=== PATIENT | male | born 1955 | race Caucasian/White ===

== ENCOUNTER 2019-04-12 14:01 | Emergency (ER) | payer OTHER ==
[~2019-04-12] VITALS: Ht 177.8 cm; Wt 88.5 kg
--- OUTSIDE RECORDS SUMMARY | 2019-04-12 14:04 | XMS REPORT ---
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 Allergies, Adverse Reactions, Alerts This patient has no known allergies or adverse reactions. Medications This patient has no known medications. Results Test Description Test Time Test Comments Text Results Atomic Results Result Comments 19722--GAGK PATH LEVEL 3 2018-12-06 08:53:00 RUN DATE: 12/06/18 [facility] LAB*Live* PAGE 1 RUN TIME: 0853 Specimen Inquiry PATIENT: CHRISTOPH DELAROSA ACCT: [id number] LOC: 2ND U: [id number] AGE/SX: 63/M ROOM: 209 RE12/05/18REG DR: Maurizio Gunter MD : 1955 BED: A DIS: STATUS: ADM Talia TLOC: SPEC : [id number] RECD: 12/05/18 STATUS: DIGNA PRATHER NUM: [id number] SAE: 12/05/18- SUBM DR: Maurizio Gunter MD ENTERED: 12/05/182 SP TYPE: INPATIENT OTHR DR: Jamhsid Stock Jennifer NPORDERED: [id number] CODES: APPENDIX, NOS COPIES TO: Maurizio Gunter MD [address] [facility] [address] [place], [place] [address] [email or web address] Jamshid Stock [address] [place] [address] [email or web address] Yarelis Aldana [employer] [address] [facility] [address] [place], [place] [id number] PROCEDURES: 38154 (12/06/18) TISSUES: APPENDIX, NOS - APPENDIX CLINICAL HISTORY Pre-op Diagnosis: Acute appendicitis.Post-op Diagnosis: Same. DIAGNOSIS Appendix, appendectomy: - Acute appendicitis - Fibro us obliteration of the tip - Fecaliths identified CPT 94437 CONTINUED ON NEXT PAGE RUN DATE: 12/06/18 [facility]* PAGE 2 RUN TIME: 0853 Specimen Inquiry SPEC: [id number] PATIENT: CHRISTOPH DELAROSA [id number] (Continued) GROSS DESCRIPTION The case is received in one part, labeled with the patient's name Christoph Delarosa andaccession #[id number] accompanied by a requisition slip labeled with the patient's name andthe same accession number. The specimen is received in formalin, labeled appendix and consists of an inflamed redappendix measuring 6.3 cm in length and 1 cm in diameter. The attached mesoappendix measures6.5 x 2.4 x 1.4 cm. The wall of the appendix appears intact and measures 0.1 and 0.2 cm inthickness. There is some purulent material in the lumen. There are also two brown fecalithsmeasuring 0.9 and 1 cm. The mucosa is erythematous. Teacher Learning Disabled sections, including thetip, are submitted in two cassettes. (ASW) MICROSCOPIC DESCRIPTION Sections show appendix with severe acute inflammation involving the lumen, appendix wall,serosa and surrounding soft tissue. There is fibrous obliteration of the tip. Signed (signature on file) Carol Beard MD 12/06/18 0853 END OF REPORT Basic Metabolic Panel 2018-12-06 06:42:00 Serum or plasma sodium measurement (moles/volume) (test ssex=6685-9) 141 mmol/L 136-145 Potassium [Moles/volume] in Serum or Plasma (test gham=7303-3) 4.2 mmol/L 3.5-5.1 Chloride [Moles/volume] in Serum or Plasma (test gcpf=6372-0) 108 mmol/L 98-107 Carbon dioxide, total [Moles/volume] in Serum or Plasma (test opet=0866-8) 27 mmol/L 21-32 Glucose [Mass/volume] in Serum or Plasma (test qzbq=9456-0) 164 mg/dL 74-106 Urea nitrogen [Mass/volume] in Serum or Plasma (test ouvm=6005-9) 9 mg/dL 7-18 Creatinine [Mass/volume] in Serum or Plasma (test yjhy=8932-3) 1.25 mg/dL 0.55-1.3 Glomerular Filtration Rate (test code=GFR) 59 mL =/>90 FOR CHRONIC KIDNEY DISEASE: GFR STAGE DESCRIPTION=/>90 STAGE 1 NORMAL--OR-- MINIMAL KIDNEY DAMAGE WITH NORMAL GFR 60-89 STAGE 2 MILD DECREASE IN GFR 30-59 STAGE 3 MODERATE DECREASE IN GFR 15-29 STAGE 4 SEVERE DECREASE IN GFR <15 STAGE 5 KIDNEY FAILURE The Glomerular Filtration Rate (GFR) has been calculated using the IDMS-Traceable MDRD Study Equation. Calcium [Mass/volume] in Serum or Plasma (test vxid=76596-4) 8.2 mg/dL 8.5-10.1 Primary Language Chilean Primary Language EnglishMagnesium [Mass/volume] in Serum or Kiiewz2274-55-41 06:42:00* Test Item Value Reference Range Comments Magnesium [Mass/volume] in Serum or Plasma (test etlb=21426-3) 2.0 mg/dL 1.8-2.4 Primary Language Chilean Primary Language EnglishComplete blood count (CBC) with automated white blood cell (WBC) yipruveihbrx9119-88-07 06:33:00* Test Item Value Reference Range Comments White blood cell count (test fhcb=UHV5884) 6.1 4.3-10.9 Blood erythrocytes count (number/volume) (test znyy=52414-6) 4.40 M/ul 4.33-5.43 Hemoglobin measurement (test iewp=BYX8932) 14.5 g/dL 13.6-17.9 Blood hematocrit (volume fraction) (test tlbx=63633-4) 43.3 % 39.6-49.0 MCV (test ahfs=CZM6253) 98.5 fL 80-100 32.9 MCHC (test code=MCHC) 33.4 g/dL 32.0-36.0 Platelets (test code=PLT) 128 152-406 Red Cell Distribution Width (test code=RDW) 13.3 % 12.1-15.2 Blood platelet mean volume (test wmnv=14105-3) 8.6 fL 7.6-11.3 Neutrophils % (test code=CARRIE%) 70.8 % 41.7-73.7 Lymphocytes/leuk NFr Bld (test birw=27611-1) 20.6 % 15.3-44.8 Monocyte percentage (test lmpt=0161-7) 7.2 % 3.3-12.3 Eosinophil % (test fvxw=652-6) 1.1 % 0-4.4 Basophil % (test grjx=64941-6) 0.3 % 0-1.3 Absolute neutrophil count (test roip=WLE7442) 4.3 1.8-8.0 Absolute lymphocyte count (test uezk=97105-3) 1.3 0.7-4.9 Absolute monocyte count (test hpfs=NPA4797) 0.4 0.1-1.3 Absolute Eosinophils (test code=EOA) 0.1 0-0.5 Absolute Basophils (test code=BASA) 0.0 0-0.5 Primary Language EnglishAngio Aorta For Dehgehixkg3712-10-82 08:48:[address] [address] RADIOLOGY SERVICES REPORT Name: CHRISTOPH DELAROSA Acct Number: [id number] :1955 Age:63 Sex:M Ord Phys: Stefania Reyes [facility] Unit Number: [id number] Prim Care Dr: Yarelis Aldana TE[employer]POS[employer] LEAKAGE Status: RE G ER ER Exam Date: 12/05/18 EXAM DESCRIPTION: CT - Angio Aorta For Dissection - 12/05/2018 8:29 am CLINIC AL HISTORY: Chest pain radiating to the back. abd pain COMPARISON: No comparisons TECHNIQUE: CT angiography of the aorta was performed with MIP s. All CT scans are performed using dose optimization technique as appropr iate and may include automated exposure control or mA/KV adjustment according to patient size. FINDINGS: A left aortic arch is present with normal branch ing pattern of the great vessels.No acute aortic finding is seen such as aneurys m, penetrating ulcer or dissection. The celiac axis, SMA, WILBERTO and renal arterie s are widely patent. Focal soft plaque is present right common iliac artery resu lting in mild luminal narrowing. No evidence of pulmonary embolism. Mild diffuse COPD. The liver demonstrates no focal mass or biliary dilatat ion.The spleen, pancreas, adrenal glands and kidneys are within normal limits fo r arterial phase imaging. No bowel obstruction, free fluid or abscess.The appendix is dilated and inflamed in the right lower quadrant measuring up to 12 mm. An appendicolith is seen in the base of the appendix.No pathologic enlarged lymphadenopathy identified. Bilateral total hip arthroplasties are noted. IMPRESSION: Acute appendicitis. No acute aortic finding. Signed By: Epifanio Rouse MD Signed AT: 12/05/18 0848 Basic Metabolic Ymgdl7162-90-29 07:42:00* Test Item Value Reference Range Comments Serum or plasma sodium measurement (moles/volume) (test ibfq=7542-4) 139 mmol/L 136-145 Potassium [Moles/volume] in Serum or Plasma (test yzuv=3405-8) 4.0 mmol/L 3.5-5.1 Chloride [Moles/volume] in Serum or Plasma (test gfib=7715-1) 105 mmol/L 98-107 Carbon dioxide, total [Moles/volume] in Serum or Plasma (test zyiu=4713-8) 27 mmol/L 21-32 Glucose [Mass/volume] in Serum or Plasma (test ktkg=8712-9) 126 mg/dL 74-106 Urea nitrogen [Mass/volume] in Serum or Plasma (test mvhn=2777-0) 14 mg/dL 7-18 Creatinine [Mass/volume] in Serum or Plasma (test getz=1385-8) 1.29 mg/dL 0.55-1.3 Glomerular Filtration Rate (test code=GFR) 57 mL =/>90 FOR CHRONIC KIDNEY DISEASE: GFR STAGE DESCRIPTION=/>90 STAGE 1 NORMAL--OR-- MINIMAL KIDNEY DAMAGE WITH NORMAL GFR 60-89 STAGE 2 MILD DECREASE IN GFR 30-59 STAGE 3 MODERATE DECREASE IN GFR 15-29 STAGE 4 SEVERE DECREASE IN GFR <15 STAGE 5 KIDNEY FAILURE The Glomerular Filtration Rate (GFR) has been calculated using the IDMS-Traceable MDRD Study Equation. Calcium [Mass/volume] in Serum or Plasma (test mehy=67477-3) 8.4 mg/dL 8.5-10.1 Comment Bed:[facility] (Hepatic) Iwamdutp8967-64-71 07:42:00* Test Item Value Reference Range Comments Aspartate aminotransferase [Enzymatic activity/volume] in Serum or Plasma by With P-5 (test rizz=60807-5) 28 U/L 15-37 Alanine aminotransferase [Enzymatic activity/volume] in Serum or Plasma by With P-5'- (test gdar=7578-1) 27 U/L 12-78 Alkaline phosphatase [Enzymatic activity/volume] in Serum or Plasma (test hzvb=7193-4) 68 U/L 45-117 Bilirubin.total [Mass/volume] in Serum or Plasma (test slpy=2230-7) 0.9 mg/dL 0.2-1.0 Bilirubin.direct [Mass/volume] in Serum or Plasma (test clzu=7115-2) 0.2 mg/dL 0-0.2 Protein [Mass/volume] in Serum or Plasma (test aszr=6996-4) 7.5 g/dL 6.4-8.2 Albumin [Mass/volume] in Serum or Plasma by Bromocresol purple (BCP) dye binding meth (test sakt=47744-5) 3.7 g/dL 3.4-5.0 Globulin (test code=GLOB) 3.8 g/dL 2.3-3.5 Albumin/Globulin Ratio (test code=A/G) 1.0 1.1-1.8 Comment Bed:8Troponin I.cardiac [Mass/volume] in Serum or Onjxiw4899-97-47 07:42:00* Test Item Value Reference Range Comments Troponin I.cardiac [Mass/volume] in Serum or Plasma (test ndum=59441-2) <0.02 ng/mL 0.0-0.045 Comment Bed:8Lipase [Enzymatic activity/volume] in Serum or Vzmjmz9695-68-17 07:42:00* Test Item Value Reference Range Comments Lipase [Enzymatic activity/volume] in Serum or Plasma (test nrfj=9243-2) 123 U/L 73-393 Comment Bed:8Creatinine [Mass/volume] in Serum or Scuxkb2150-85-18 07:28:00* Test Item Value Reference Range Comments Creatinine [Mass/volume] in Serum or Plasma (test jriq=4709-7) 1.35 mg/dL 0.55-1.3 Glomerular Filtration Rate (test code=GFRT) 54 mL >60 FOR CHRONIC KIDNEY DISEASE: GFR STAGE >60 1 or 2 30-59 3 15-29 4 <15(or dialysis) 5 The Glomerular Filtration Rate (GFR) has been calculated using the IDMS-Traceable MDRD Study Equation. Complete blood count (CBC) with automated white blood cell (WBC) differential 2018-12-05 07:13:00* Test Item Value Reference Range Comments White blood cell count (test zqdu=KOY1288) 13.2 4.3-10.9 Blood erythrocytes count (number/volume) (test vyhj=69534-6) 5.18 M/ul 4.33-5.43 Hemoglobin measurement (test mzlb=XLJ1511) 16.9 g/dL 13.6-17.9 Blood hematocrit (volume fraction) (test urlx=62691-9) 49.5 % 39.6-49.0 MCV (test jqva=BNQ7246) 95.5 fL 80-100 32.7 MCHC (test code=MCHC) 34.2 g/dL 32.0-36.0 Platelets (test code=PLT) 176 152-406 Red Cell Distribution Width (test code=RDW) 13.4 % 12.1-15.2 Blood platelet mean volume (test hlel=62989-3) 8.6 fL 7.6-11.3 Neutrophils % (test code=CARRIE%) 81.4 % 41.7-73.7 Lymphocytes/leuk NFr Bld (test nswo=68509-6) 10.5 % 15.3-44.8 Monocyte percentage (test vqlf=0877-8) 7.1 % 3.3-12.3 Eosinophil % (test oige=942-4) 0.7 % 0-4.4 Basophil % (test cxgr=11332-0) 0.3 % 0-1.3 Absolute neutrophil count (test kqmm=IUW1956) 10.8 1.8-8.0 Absolute lymphocyte count (test vofr=51076-0) 1.4 0.7-4.9 Absolute monocyte count (test lldy=RJK8855) 0.9 0.1-1.3 Absolute Eosinophils (test code=EOA) 0.1 0-0.5 Absolute Basophils (test code=BASA) 0.0 0-0.5 Estradiol, Omywq0135-07-93 15:03:00* Test Item Value Reference Range Comments Estradiol, Total (test code=ESTRA) <15 <=39 Reference range established on post- pubertal patient population. No pre-pubertal reference range established using this assay. For any patients for whom low Estradiol levels are anticipated (e.g. males, pre-pubertal children, and hypogonadal/post-menopausal females), the [facility] Estradiol, Ultrasensitive, LCMSMS assay is recommended (order code 40414). Please note: Patients being treated with the drug fulvestrant [Faslodex(R)] have demonstrated significant interference in immunoassay methods for estradiol measurement. The cross reactivity could lead to falsely elevated estradiol test results leading to an inappropriate clinical assessment of estrogen status. [facility] order code 15309-Kqtmnscxb, Ultrasensitive LC/MS/MS demonstrates negligible cross reactivity with fulvestrant. Luteinizing Flsaygd4415-08-58 22:06:00* Test Item Value Reference Range Comments Luteinizing Hormone (test code=LH) <0.2 1.6-15.2 BIOAVAILABLE TESTO (CODE 91465) INCLUDES TESTO-FREE (LG RED)Miscellaneous Test Zze0366-89-96 22:06:00* Test Item Value Reference Range Comments Miscellaneous Test Lab (test code=MISC) SENT Specimen sent to Reference Laboratory. Results to follow. BIOAVAILABLE TESTO (CODE 35002) INCLUDES TESTO-FREE (LG RED)Estrogen measurement 2018-08-24 22:06:00* Test Item Value Reference Range Comments Estrogen measurement (test hmhh=8120-9) 280.5 pg/mL 60-190 The total estrogen assay is not recommended for use in pre-pubertal children. Test performed by [facility] [address] [id number] Surveyor Mine: Steph Acosta MD,PHD,MENDEL Test Reported by [facility], [facility], [address] [place] [address] Kehinde Jefferson M.D., Ph.D., Director of Laboratories , CLIA [id number] BIOAVAILABLE TESTO (CODE 04354) INCLUDES TESTO-FREE (LG RED)Liver (Hepatic) Aeyrqowp1889-77-90 18:02:00* Test Item Value Reference Range Comments Aspartate aminotransferase [Enzymatic activity/volume] in Serum or Plasma by With P-5 (test ywne=47537-3) 31 U/L 15-37 Alanine aminotransferase [Enzymatic activity/volume] in Serum or Plasma by With P-5'- (test irxq=3010-8) 26 U/L 12-78 Alkaline phosphatase [Enzymatic activity/volume] in Serum or Plasma (test palg=0144-3) 80 U/L 45-117 Bilirubin.total [Mass/volume] in Serum or Plasma (test czsm=1276-8) 0.8 mg/dL 0.2-1.0 Bilirubin.direct [Mass/volume] in Serum or Plasma (test ntus=3311-3) 0.2 mg/dL 0-0.2 Protein [Mass/volume] in Serum or Plasma (test efst=7078-0) 7.4 g/dL 6.4-8.2 Albumin [Mass/volume] in Serum or Plasma by Bromocresol purple (BCP) dye binding meth (test ennc=41673-0) 3.9 g/dL 3.4-5.0 Globulin (test code=GLOB) 3.5 g/dL 2.3-3.5 Albumin/Globulin Ratio (test code=A/G) 1.1 1.1-1.8 Prostate specific Ag [Mass/volume] in Serum or Mhglsc3176-47-51 18:02:00* Test Item Value Reference Range Comments Prostate specific Ag [Mass/volume] in Serum or Plasma (test vkgs=5258-8) 0.38 ng/mL 0-4.00 Complete blood count (CBC) with automated white blood cell (WBC) differential 2018-08-20 17:13:00* Test Item Value Reference Range Comments White blood cell count (test phmz=HQK2952) 7.0 4.3-10.9 Blood erythrocytes count (number/volume) (test jcqb=61418-2) 5.32 M/ul 4.33-5.43 Hemoglobin measurement (test ixzr=FYO3077) 17.3 g/dL 13.6-17.9 Blood hematocrit (volume fraction) (test livb=10266-1) 51.4 % 39.6-49.0 MCV (test piyc=HCC6342) 96.6 fL 80-100 32.6 MCHC (test code=MCHC) 33.7 g/dL 32.0-36.0 Platelets (test code=PLT) 197 152-406 Red Cell Distribution Width (test code=RDW) 13.1 % 12.1-15.2 Blood platelet mean volume (test oynp=17288-1) 8.2 fL 7.6-11.3 Neutrophils % (test code=CARRIE%) 59.1 % 41.7-73.7 Lymphocytes/leuk NFr Bld (test vrwy=82053-6) 26.2 % 15.3-44.8 Monocyte percentage (test jsci=4153-3) 12.1 % 3.3-12.3 Eosinophil % (test txzq=432-5) 2.1 % 0-4.4 Basophil % (test bpkm=06889-3) 0.5 % 0-1.3 Absolute neutrophil count (test ljmn=774-7) 4.1 1.8-8.0 Absolute lymphocyte count (test pkhc=36097-8) 1.8 0.7-4.9 Absolute monocyte count (test ebbn=505-7) 0.8 0.1-1.3 Absolute Eosinophils (test code=EOA) 0.1 0-0.5 Absolute Basophils (test code=BASA) 0.0 0-0.5 Hemoglobin A1c/Hemoglobin.total in Pyjvz1539-17-07 14:23:00* Test Item Value Reference Range Comments Hemoglobin A1c/Hemoglobin.total in Blood (test axcs=9943-9) 5.6 % 4.2-6.3 *Heavy or chronic bleeding causing hemoglobin stores to be depleted may result in falsely low levels. *Iron Deficiency Anemia may result in falsely high levels. *Other forms of anemia, recent blood transfusions, and hemoglobin variants may result in spurious levels. Comprehensive metabolic egkan4556-69-37 13:06:00* Test Item Value Reference Range Comments Serum or plasma sodium measurement (moles/volume) (test xojx=3471-8) 142 mmol/L 136-145 Potassium [Moles/volume] in Serum or Plasma (test bqbd=9022-3) 4.4 mmol/L 3.5-5.1 Chloride [Moles/volume] in Serum or Plasma (test odqa=1233-8) 108 mmol/L 98-107 Carbon dioxide, total [Moles/volume] in Serum or Plasma (test tiqu=5184-4) 28 mmol/L 21-32 Glucose [Mass/volume] in Serum or Plasma (test ifxw=3397-1) 115 mg/dL 74-106 Urea nitrogen [Mass/volume] in Serum or Plasma (test ukrt=6437-3) 14 mg/dL 7-18 Creatinine [Mass/volume] in Serum or Plasma (test mcnq=4616-8) 1.25 mg/dL 0.55-1.3 Glomerular Filtration Rate (test code=GFR) 59 mL =/>90 FOR CHRONIC KIDNEY DISEASE: GFR STAGE DESCRIPTION=/>90 STAGE 1 NORMAL--OR-- MINIMAL KIDNEY DAMAGE WITH NORMAL GFR 60-89 STAGE 2 MILD DECREASE IN GFR 30-59 STAGE 3 MODERATE DECREASE IN GFR 15-29 STAGE 4 SEVERE DECREASE IN GFR <15 STAGE 5 KIDNEY FAILURE The Glomerular Filtration Rate (GFR) has been calculated using the IDMS-Traceable MDRD Study Equation. Aspartate aminotransferase [Enzymatic activity/volume] in Serum or Plasma by With P-5 (test saqm=53539-3) 28 U/L 15-37 Alanine aminotransferase [Enzymatic activity/volume] in Serum or Plasma by With P-5'- (test tpkk=9705-6) 23 U/L 12-78 Alkaline phosphatase [Enzymatic activity/volume] in Serum or Plasma (test wmqx=3422-9) 61 U/L 45-117 Bilirubin.total [Mass/volume] in Serum or Plasma (test pbra=8115-2) 0.8 mg/dL 0.2-1.0 Calcium [Mass/volume] in Serum or Plasma (test xnjp=99139-7) 8.5 mg/dL 8.5-10.1 Protein [Mass/volume] in Serum or Plasma (test kueb=5373-0) 6.9 g/dL 6.4-8.2 Albumin [Mass/volume] in Serum or Plasma by Bromocresol purple (BCP) dye binding meth (test gzof=67351-7) 3.6 g/dL 3.4-5.0 Globulin (test code=GLOB) 3.3 g/dL 2.3-3.5 Albumin/Globulin Ratio (test code=A/G) 1.1 1.1-1.8 Lipid vptgjdf0256-00-60 13:06:00* Test Item Value Reference Range Comments Cholesterol [Mass/volume] in Serum or Plasma (test yboz=3479-5) 171 mg/dL <200 Triglyceride [Mass/volume] in Serum or Plasma (test ktww=5162-6) 342 mg/dL <150 Cholesterol in HDL [Mass/volume] in Serum or Plasma (test lmpf=8779-9) 37 mg/dL 40-60 Serum or plasma cholesterol in LDL measurement by calculation (mass/volume) (test ydgj=22391-6) 66 <130 This LDL is a calculated result; a more accurate analysis can be performed using the direct LDL methodology. Total cholesterol/cholesterol in HDL (percentile) (test frix=5780-0) 4.62 LIPID RISK RATIOS: 1/2 AVERAGE AVERAGE 2X AVERAGE 3X AVERAGE ------- MALE 3.43 4.97 9.55 23.39 FEMALE 3.27 4.44 7.05 11.04 Thyroxine (T4) free [Mass/volume] in Serum or Ytxotu9834-69-38 13:06:00* Test Item Value Reference Range Comments Thyroxine (T4) free [Mass/volume] in Serum or Plasma (test nyil=8255-3) 0.80 0.76-1.46 Thyrotropin [Units/volume] in Serum or Plasma by Detection limit <=0.05 mIU/L 2018-07-23 13:06:00* Test Item Value Reference Range Comments Thyrotropin [Units/volume] in Serum or Plasma by Detection limit \T\lt;=0.05 mIU/L (test pnvs=30913-8) 3.950 [iU]/L 0.360-3.740 TSH >3.75 uIU/mL requires reflex testing of Free T4. Thyrotropin [Units/volume] in Serum or Plasma by Detection limit <=0.05 mIU/L 2018-07-23 12:46:00* Test Item Value Reference Range Comments Thyrotropin [Units/volume] in Serum or Plasma by Detection limit \T\lt;=0.05 mIU/L (test ipok=04666-0) 3.950 [iU]/L 0.360-3.740 TSH >3.75 uIU/mL requires reflex testing of Free T4. Complete blood count (CBC) with automated white blood cell (WBC) differential 2018-07-23 10:15:00* Test Item Value Reference Range Comments White blood cell count (test opdc=JYX5379) 4.9 4.3-10.9 Blood erythrocytes count (number/volume) (test ltuk=96149-2) 4.89 M/ul 4.33-5.43 Hemoglobin measurement (test nuwg=YKZ1744) 16.1 g/dL 13.6-17.9 Blood hematocrit (volume fraction) (test fmmz=32057-4) 47.6 % 39.6-49.0 MCV (test auiu=GVW8851) 97.3 fL 80-100 33.0 MCHC (test code=MCHC) 33.9 g/dL 32.0-36.0 Platelets (test code=PLT) 159 152-406 Red Cell Distribution Width (test code=RDW) 13.1 % 12.1-15.2 Blood platelet mean volume (test njtr=58776-4) 8.4 fL 7.6-11.3 Neutrophils % (test code=CARRIE%) 58.3 % 41.7-73.7 Lymphocytes/leuk NFr Bld (test yvbo=02849-0) 26.0 % 15.3-44.8 Monocyte percentage (test mgyr=4208-2) 11.4 % 3.3-12.3 Eosinophil % (test ktef=374-1) 3.8 % 0-4.4 Basophil % (test iuec=07297-1) 0.5 % 0-1.3 Absolute neutrophil count (test onur=460-5) 2.8 1.8-8.0 Absolute lymphocyte count (test mbvw=49142-3) 1.3 0.7-4.9 Absolute monocyte count (test ifdp=011-6) 0.6 0.1-1.3 Absolute Eosinophils (test code=EOA) 0.2 0-0.5 Absolute Basophils (test code=BASA) 0.0 0-0.5 Comprehensive metabolic cfwgd9190-79-95 13:27:00* Test Item Value Reference Range Comments Serum or plasma sodium measurement (moles/volume) (test tqks=1888-1) 138 mmol/L 136-145 Potassium [Moles/volume] in Serum or Plasma (test omip=4264-7) 4.0 mmol/L 3.5-5.1 Chloride [Moles/volume] in Serum or Plasma (test wufp=6693-5) 104 mmol/L 98-107 Carbon dioxide, total [Moles/volume] in Serum or Plasma (test hufs=9696-8) 28 mmol/L 21-32 Glucose [Mass/volume] in Serum or Plasma (test qfzv=7066-2) 134 mg/dL 74-106 Urea nitrogen [Mass/volume] in Serum or Plasma (test cede=2207-1) 13 mg/dL 7-18 Creatinine [Mass/volume] in Serum or Plasma (test bkte=5129-1) 1.30 mg/dL 0.55-1.3 Glomerular Filtration Rate (test code=GFR) 56 mL =/>90 FOR CHRONIC KIDNEY DISEASE: GFR STAGE DESCRIPTION=/>90 STAGE 1 NORMAL--OR-- MINIMAL KIDNEY DAMAGE WITH NORMAL GFR 60-89 STAGE 2 MILD DECREASE IN GFR 30-59 STAGE 3 MODERATE DECREASE IN GFR 15-29 STAGE 4 SEVERE DECREASE IN GFR <15 STAGE 5 KIDNEY FAILURE The Glomerular Filtration Rate (GFR) has been calculated using the IDMS-Traceable MDRD Study Equation. Aspartate aminotransferase [Enzymatic activity/volume] in Serum or Plasma by With P-5 (test kcgx=25281-8) 25 U/L 15-37 Alanine aminotransferase [Enzymatic activity/volume] in Serum or Plasma by With P-5'- (test snee=0229-2) 30 U/L 12-78 Alkaline phosphatase [Enzymatic activity/volume] in Serum or Plasma (test xlzq=4326-1) 52 U/L 45-117 Bilirubin.total [Mass/volume] in Serum or Plasma (test omny=7443-7) 0.6 mg/dL 0.2-1.0 Calcium [Mass/volume] in Serum or Plasma (test fzmt=17299-3) 8.7 mg/dL 8.5-10.1 Protein [Mass/volume] in Serum or Plasma (test qgjy=3972-0) 7.6 g/dL 6.4-8.2 Albumin [Mass/volume] in Serum or Plasma by Bromocresol purple (BCP) dye binding meth (test nedl=50469-8) 3.7 g/dL 3.4-5.0 Globulin (test code=GLOB) 3.9 g/dL 2.3-3.5 Albumin/Globulin Ratio (test code=A/G) 0.9 1.1-1.8 Amylase [Enzymatic activity/volume] in Serum or Tsjaoe7146-51-59 13:27:00* Test Item Value Reference Range Comments Amylase [Enzymatic activity/volume] in Serum or Plasma (test nzyj=0533-9) 23 U/L 25-115 Lipase [Enzymatic activity/volume] in Serum or Fygiph4057-24-46 13:27:00* Test Item Value Reference Range Comments Lipase [Enzymatic activity/volume] in Serum or Plasma (test ccen=0897-7) 161 U/L 73-393 Complete blood count (CBC) with automated white blood cell (WBC) differential 2018-04-27 13:16:00* Test Item Value Reference Range Comments White blood cell count (test nqyo=ZXY4716) 6.9 4.3-10.9 Blood erythrocytes count (number/volume) (test sxzq=83518-2) 5.38 M/ul 4.33-5.43 Hemoglobin measurement (test gyrq=XHS6270) 18.1 g/dL 13.6-17.9 Blood hematocrit (volume fraction) (test hkdn=89415-7) 52.2 % 39.6-49.0 MCV (test vwko=64085-0) 97.0 fL 80-100 MCH (test ktsy=14126-5) 33.7 pg 27.0-35.0 MCHC (test code=MCHC) 34.8 g/dL 32.0-36.0 Platelets (test code=PLT) 162 152-406 Red Cell Distribution Width (test code=RDW) 12.9 % 12.1-15.2 Blood platelet mean volume (test zddf=73148-0) 8.7 fL 7.6-11.3 Neutrophils % (test code=CARRIE%) 79.0 % 41.7-73.7 Lymphocytes/leuk NFr Bld (test cfiq=80719-9) 12.6 % 15.3-44.8 Monocyte percentage (test lrpg=2266-3) 7.9 % 3.3-12.3 Eosinophil % (test qski=013-1) 0.1 % 0-4.4 Basophil % (test hcan=36810-6) 0.4 % 0-1.3 Absolute neutrophil count (test afey=254-2) 5.4 1.8-8.0 Absolute lymphocyte count (test vxbf=61168-1) 0.9 0.7-4.9 Absolute monocyte count (test dnib=261-9) 0.5 0.1-1.3 Absolute Eosinophils (test code=EOA) 0.0 0-0.5 Absolute Basophils (test code=BASA) 0.0 0-0.5 Comprehensive metabolic nksun4234-97-65 15:17:00* Test Item Value Reference Range Comments Serum or plasma sodium measurement (moles/volume) (test iudz=7001-3) 143 mmol/L 136-145 Potassium [Moles/volume] in Serum or Plasma (test ivtu=4983-8) 4.7 mmol/L 3.5-5.1 Chloride [Moles/volume] in Serum or Plasma (test uyuz=5730-0) 106 mmol/L 98-107 Carbon dioxide, total [Moles/volume] in Serum or Plasma (test otib=4752-5) 30 mmol/L 21-32 Glucose [Mass/volume] in Serum or Plasma (test yclt=5313-4) 115 mg/dL 74-106 Urea nitrogen [Mass/volume] in Serum or Plasma (test kddf=2771-5) 14 mg/dL 7-18 Creatinine [Mass/volume] in Serum or Plasma (test oytb=0305-2) 1.20 mg/dL 0.55-1.3 Estimated glomerular filtration rate (GFR) determination (test hnzr=97417-1) 62 mL =/>90 FOR CHRONIC KIDNEY DISEASE: GFR STAGE DESCRIPTION=/>90 STAGE 1 NORMAL--OR-- MINIMAL KIDNEY DAMAGE WITH NORMAL GFR 60-89 STAGE 2 MILD DECREASE IN GFR 30-59 STAGE 3 MODERATE DECREASE IN GFR 15-29 STAGE 4 SEVERE DECREASE IN GFR <15 STAGE 5 KIDNEY FAILURE The Glomerular Filtration Rate (GFR) has been calculated using the IDMS-Traceable MDRD Study Equation. Aspartate aminotransferase [Enzymatic activity/volume] in Serum or Plasma by With P-5 (test btgu=70422-0) 32 U/L 15-37 Alanine aminotransferase [Enzymatic activity/volume] in Serum or Plasma by With P-5'- (test xeal=0657-3) 26 U/L 12-78 Alkaline phosphatase [Enzymatic activity/volume] in Serum or Plasma (test bcln=7688-1) 72 U/L 45-117 Bilirubin.total [Mass/volume] in Serum or Plasma (test emph=3109-0) 1.0 mg/dL 0.2-1.0 Calcium [Mass/volume] in Serum or Plasma (test boag=18036-0) 9.3 mg/dL 8.5-10.1 Protein [Mass/volume] in Serum or Plasma (test dojg=4244-3) 7.0 g/dL 6.4-8.2 Albumin [Mass/volume] in Serum or Plasma by Bromocresol purple (BCP) dye binding meth (test nmdv=80860-7) 3.9 g/dL 3.4-5.0 Globulin (test code=GLOB) 3.1 g/dL 2.3-3.5 Albumin/Globulin Ratio (test code=A/G) 1.3 1.1-1.8 Lipid cmjbdpq9034-05-73 15:17:00* Test Item Value Reference Range Comments Cholesterol [Mass/volume] in Serum or Plasma (test uhky=0241-2) 174 mg/dL <200 Triglyceride [Mass/volume] in Serum or Plasma (test qrti=6763-1) 599 mg/dL <150 TRIGLYCERIDE >400mg/dL requires reflex testing of DIRECT LDL Cholesterol in HDL [Mass/volume] in Serum or Plasma (test lrmx=5163-5) 41 mg/dL 40-60 Serum or plasma cholesterol in LDL measurement by calculation (mass/volume) (test qcfp=33937-3) Not Done <130 Total cholesterol/cholesterol in HDL (percentile) (test rafi=0417-3) 4.24 LIPID RISK RATIOS: 1/2 AVERAGE AVERAGE 2X AVERAGE 3X AVERAGE ------- MALE 3.43 4.97 9.55 23.39 FEMALE 3.27 4.44 7.05 11.04 Cholesterol in LDL [Mass/volume] in Serum or Plasma by Direct mwjxr7846-35-08 15:17:00* Test Item Value Reference Range Comments Cholesterol in LDL [Mass/volume] in Serum or Plasma by Direct assay (test peih=81697-7) 78 mg/dL 100-129 Thyrotropin [Units/volume] in Serum or Plasma by Detection limit <=0.05 mIU/L 2018-01-22 15:17:00* Test Item Value Reference Range Comments Thyrotropin [Units/volume] in Serum or Plasma by Detection limit \T\lt;=0.05 mIU/L (test bgbs=02122-6) 3.650 [iU]/L 0.36-3.74 Complete blood count (CBC) with automated white blood cell (WBC) differential 2018-01-22 14:59:00* Test Item Value Reference Range Comments White blood cell count (test dkim=JSF1506) 3.9 4.3-10.9 Blood erythrocytes count (number/volume) (test zxoz=21670-2) 5.08 M/ul 4.33-5.43 Hemoglobin measurement (test vsex=BYY5457) 17.2 g/dL 13.6-17.9 Blood hematocrit (volume fraction) (test czbh=69968-1) 50.6 % 39.6-49.0 MCV (test iori=62691-7) 99.5 fL 80-100 MCH (test kbub=39142-6) 33.9 pg 27.0-35.0 MCHC (test code=MCHC) 34.0 g/dL 32.0-36.0 Platelets (test code=PLT) 194 152-406 Red Cell Distribution Width (test code=RDW) 13.6 % 12.1-15.2 Blood platelet mean volume (test txss=61191-7) 8.9 fL 7.6-11.3 Neutrophils % (test code=CARRIE%) 45.6 % 41.7-73.7 Lymphocytes/leuk NFr Bld (test udwc=39606-7) 38.6 % 15.3-44.8 Monocyte percentage (test nmyx=8298-5) 12.0 % 3.3-12.3 Eosinophil % (test ivin=314-8) 3.4 % 0-4.4 Basophil % (test njhg=17153-4) 0.4 % 0-1.3 Absolute neutrophil count (test lclf=838-3) 1.8 1.8-8.0 Absolute lymphocyte count (test gtph=03683-1) 1.5 0.7-4.9 Absolute monocyte count (test fsjd=239-9) 0.5 0.1-1.3 Absolute Eosinophils (test code=EOA) 0.1 0-0.5 Absolute Basophils (test code=BASA) 0.0 0-0.5 Thoracic Spine Ap/Wpj6449-80-82 15:09:00[place] [address] [facility] REPORT Name: CHRISTOPH DELAROSA Acct Number: [id number] :1955 Age:62 Sex:M Ord Phys: Yarelis Aldana [employer] Unit Number: [id number] [facility] Dr: Status: REG REF RAD Exam Date: 01/18/18 EXAM DESCRIPTION: RAD - Thoracic Spine Ap/Lat - 01/18/2018 3:00 pm CLINICAL HISTORY: J30.9, M54.9 COMPARISON: None. FINDINGS: AP lateral views of the thoracic spine were obtained. Thoracic bodies are normal in height and alignment. There are no acute or destructive bony processes seen. No paraspinal masses are identified. Mild endplate spurring changes are present in the midthoracic spine and along the right lateral aspect of the T9-T10 bodies. No disc space narrowing. IMPRESSION: Mild endplate degenerative spurring as detailed. No acute or suspicious finding otherwise noted. Signed By: Maikol Sauer MD Signed AT: 01/18/18 1509 Lumbar Spine 3 Qfizn6794-79-82 15:07:00[place] [address] [facility] REPORT Name: CHRISTOPH DELAROSA Acct Number: [id number] :1955 Age:62 Sex:M Ord Phys: Yarelis Aldana [employer] Unit Number: [id number] [facility] Dr: Status: REG REF RAD Accessi on #: [id number] Exam Date: 01/18/18 EXAM DESCRIPTION: RAD - Lumbar Spine 3 Views - 01/18/2018 3:00 pm CLINICAL HISTORY: J30.9, M54. 9 COMPARISON: None. FINDINGS: A three-view lumbar spine examinatio n was performed. Lumbar bodies are normal in height and AP alignment. There is a very minimal right convex curvature at the thoracolumbar junction. Endplate spu rring changes are seen in the L2-L4 bodies. Mild mid and lower lumbar facet join t degenerative change present. No fracture or acute bony process seen. No disc s pace narrowing. No pars defects identified. Aortoiliac calcifications are present. Bilateral hip implants are partially imaged. IMPRESSION: Mild en dplate and facet degenerative change present as detailed No fracture or ac absentee-shawnee bone finding. Signed By: Maikol Saure MD Signed AT: 8 1508 Testosterone, Uqpb1921-26-09 03:06:00* Test Item Value Reference Range Comments Total testosterone measurement (test mbfp=UDG6836) 3.45 ng/mL 1.75-7.81 This Testosterone test was done by the chemiluminescent methodology. Values obtained with different assay methods cannot be used interchangeably. Sex hormone binding globulin (SHBG) measurement (test utmu=45310-0) 24.0 nmol/L 13.3-89.5 Free Testosterone (test code=FTESTO) 49.88 % 24.3-110.2 Hemoglobin A1c ecruglkiwxk4379-29-80 16:16:00* Test Item Value Reference Range Comments Hemoglobin A1c measurement (test ehdu=32658-9) 5.5 % 4-6.0 Comprehensive metabolic nezbm4583-24-24 16:12:00* Test Item Value Reference Range Comments Sodium level (test ikzc=EXB9782) 141 meq/L 135-145 4.3 Chloride measurement (test vlpp=KDI5759) 102 meq/L 101-111 Bicarbonate (test code=CO2) 31 meq/L 21-31 Glucose measurement (test usqv=KSB6477) 94 mg/dL 65-120 ADA Clinical Practice Recommendation: <100 mg/dl=Normal Fasting Glucose BUN Bld-mCnc (test ffkj=2767-9) 15 mg/dL 6-20 Creatinine measurement (test kqxe=XQR5457) 1.27 mg/dL 0.61-1.24 The creatinine method used has been calibrated to be traceable to Isotope dilution Mass Spectrometry (IDMS). For more information: www.nkdep.nih.gov Estimated glomerular filtration rate (GFR) determination (test avyh=52350-8) 58 mL =/>90 FOR CHRONIC KIDNEY DISEASE: GFR STAGE DESCRIPTION=/>90 STAGE 1 NORMAL--OR-- MINIMAL KIDNEY DAMAGE WITH NORMAL GFR 60-89 STAGE 2 MILD DECREASE IN GFR 30-59 STAGE 3 MODERATE DECREASE IN GFR 15-29 STAGE 4 SEVERE DECREASE IN GFR <15 STAGE 5 KIDNEY FAILURE The Glomerular Filtration Rate (GFR) has been calculated using the IDMS-Traceable MDRD Study Equation. Aspartate aminotransferase (AST) measurement (test yrul=VKW7442) 40 [iU]/L 10-42 ALT/SGPT (test code=SGPT) 23 [iU]/L 10-60 Alkaline Phosphatase (test code=ALK) 52 [iU]/L 42-121 Bilirubin total (test vnty=UOH5925) 1.2 mg/dL 0.3-1.2 Calcium Level (test code=CA) 9.2 mg/dL 8.5-10.5 Serum total protein measurement (test qmka=0616-5) 6.7 g/dL 6.0-8.3 Albumin measurement (test dfle=HNL4015) 4.1 g/dL 3.2-5.5 Globulin (test code=GLOB) 2.6 g/dL 2.3-3.5 Albumin/Globulin Ratio (test code=A/G) 1.6 1.1-1.8 Lipid dsfllrq9869-51-93 16:12:00* Test Item Value Reference Range Comments Cholesterol measurement (test nlcc=NDA0263) 97 mg/dL <200 220 HDL Cholesterol (test code=HDL) 44 mg/dL 27-67 Serum or plasma cholesterol in LDL measurement by calculation (mass/volume) (test kvdd=48069-9) 9 <130 This LDL is a calculated result; a more accurate analysis can be performed using the direct LDL methodology. Total cholesterol/cholesterol in HDL (percentile) (test madl=7458-1) 2.20 LIPID RISK RATIOS: 1/2 AVERAGE AVERAGE 2X AVERAGE 3X AVERAGE ------- MALE 3.43 4.97 9.55 23.39 FEMALE 3.27 4.44 7.05 11.04 T4 Jhzj1738-54-01 16:12:00* Test Item Value Reference Range Comments T4 Free (test code=T4F) 0.77 ng/dL 0.58-1.64 Thyroid Stimulating Ijiibro1244-43-16 16:12:00* Test Item Value Reference Range Comments Thyroid Stimulating Hormone (test code=TSH) 5.20 [iU]/L 0.34-5.60 PSA Mweojkmacv8054-38-20 16:00:00* Test Item Value Reference Range Comments PSA Diagnostic (test code=PSADX) 0.56 ng/mL 0-4.00 This PSA test was done by the [employer] paramagnetic particle chemiluminescent immunoassay. Values obtained with different assay methods cannot be used interchangeably. Complete blood count (CBC) with automated white blood cell (WBC) differential 2017-05-01 15:31:00* Test Item Value Reference Range Comments White blood cell count (test tyad=ATG9995) 10.8 4.3-10.9 Blood erythrocytes count (number/volume) (test pall=28175-4) 5.25 M/ul 4.33-5.43 Hemoglobin measurement (test xtrt=KSV2738) 17.3 g/dL 13.6-17.9 Blood hematocrit (volume fraction) (test flyw=46135-3) 51.1 % 39.6-49.0 MCV (test svbw=63320-4) 97.2 fL 80-100 MCH (test dmns=46571-8) 33.0 pg 27.0-35.0 MCHC (test code=MCHC) 33.9 g/dL 32.0-36.0 Platelets (test code=PLT) 187 152-406 Red Cell Distribution Width (test code=RDW) 13.6 % 12.1-15.2 Blood platelet mean volume (test uxev=84723-4) 8.9 fL 7.6-11.3 Neutrophils % (test code=CARRIE%) 70.0 % 41.7-73.7 Lymphocytes/leuk NFr Bld (test pbfv=02805-1) 17.6 % 15.3-44.8 Monocyte percentage (test ihdf=2958-1) 9.2 % 3.3-12.3 Eosinophil % (test cfoc=408-3) 2.9 % 0-4.4 Basophil % (test isgj=65488-4) 0.3 % 0-1.3 Absolute neutrophil count (test xzun=133-6) 7.6 1.8-8.0 Absolute lymphocyte count (test wvrf=61279-1) 1.9 0.7-4.9 Absolute monocyte count (test ognk=377-4) 1.0 0.1-1.3 Absolute Eosinophils (test code=EOA) 0.3 0-0.5 Absolute Basophils (test code=BASA) 0.0 0-0.5 Testosterone, Vcuh4308-55-70 03:22:00* Test Item Value Reference Range Comments Testosterone (test code=TESTO) 4.49 ng/mL 1.75-7.81 This Testosterone test was done by the chemiluminescent methodology. Values obtained with different assay methods cannot be used interchangeably. Sex hormone binding globulin (SHBG) measurement (test eizp=67774-1) 11.8 nmol/L 13.3-89.5 Free Testosterone (test code=FTESTO) 132.04 % 24.3-110.2 Complete blood count (CBC) with automated white blood cell (WBC) differential 2016-10-17 16:52:00* Test Item Value Reference Range Comments White blood cell count (test rirr=HYT3359) 4.6 4.3-10.9 Blood erythrocytes count (number/volume) (test wzag=52537-1) 4.69 M/ul 4.33-5.43 Hemoglobin measurement (test ebjm=TDT6108) 15.5 g/dL 13.6-17.9 Blood hematocrit (volume fraction) (test qoaq=22188-2) 46.8 % 39.6-49.0 MCV (test hpsv=89699-0) 99.9 fL 80-100 MCH (test bnyr=61617-0) 33.0 pg 27.0-35.0 MCHC (test code=MCHC) 33.0 g/dL 32.0-36.0 Platelets (test code=PLT) 190 152-406 Red Cell Distribution Width (test code=RDW) 14.1 % 12.1-15.2 Blood platelet mean volume (test rhwx=42168-0) 8.9 fL 7.6-11.3 Neutrophils % (test code=CARRIE%) 39.9 % 41.7-73.7 Lymphocytes/leuk NFr Bld (test jmkp=44472-3) 46.7 % 15.3-44.8 Monocyte percentage (test cphv=9706-3) 10.0 % 3.3-12.3 Eosinophil % (test cmsm=569-3) 2.9 % 0-4.4 Basophil % (test gjcc=79050-6) 0.5 % 0-1.3 Absolute neutrophil count (test kdwx=529-7) 1.8 1.8-8.0 Absolute lymphocyte count (test wxcf=91851-8) 2.1 0.7-4.9 Absolute monocyte count (test xtrs=203-2) 0.5 0.1-1.3 Absolute Eosinophils (test code=EOA) 0.1 0-0.5 Absolute Basophils (test code=BASA) 0.0 0-0.5 Liver (Hepatic) Docletgv5596-97-09 16:18:00* Test Item Value Reference Range Comments Aspartate aminotransferase (AST) measurement (test zdhk=SBF1131) 33 [iU]/L 10-42 ALT/SGPT (test code=SGPT) 21 [iU]/L 10-60 Alkaline Phosphatase (test code=ALK) 56 [iU]/L 42-121 Bilirubin total (test tmve=GNC6246) 0.8 mg/dL 0.3-1.2 Bilirubin direct (test ktvy=0769-0) 0.2 mg/dL 0-0.2 Serum total protein measurement (test nkmi=0583-1) 6.3 g/dL 6.0-8.3 Albumin measurement (test saja=BKL5330) 3.9 g/dL 3.2-5.5 Globulin (test code=GLOB) 2.4 g/dL 2.3-3.5 Albumin/Globulin Ratio (test code=A/G) 1.6 1.1-1.8 Testosterone, Bubh9141-99-43 18:18:00* Test Item Value Reference Range Comments Testosterone (test code=TESTO) 1.53 ng/mL 1.75-7.81 This Testosterone test was done by the chemiluminescent methodology. Values obtained with different assay methods cannot be used interchangeably. Sex hormone binding globulin (SHBG) measurement (test nqdn=62481-1) 31.0 nmol/L 13.3-89.5 Free Testosterone (test code=FTESTO) 17.13 % 24.3-110.2 TESTO FREE & TOTALTestosterone, Dvdq1950-36-14 03:09:00* Test Item Value Reference Range Comments Testosterone (test code=TESTO) 1.27 ng/mL 1.75-7.81 This Testosterone test was done by the chemiluminescent methodology. Values obtained with different assay methods cannot be used interchangeably. Sex hormone binding globulin (SHBG) measurement (test mecx=66062-3) 23.7 nmol/L 13.3-89.5 Free Testosterone (test code=FTESTO) 18.59 % 24.3-110.2 Brgdrsnjxy3510-34-82 18:26:00* Test Item Value Reference Range Comments Urine color (test kkbs=1276-5) YELLOW Urine appearance determination (test flkl=3699-1) CLOUDY Urine specific gravity measurement (test hpqq=6198-8) 1.020 1.005-1.030 Urine glucose detection (test mplr=1872-8) Negative NEG Urine bilirubin detection (test invm=9020-1) Negative NEG Urine Ketones (test code=UKET) NEGATIVE NEG Urine blood detection (test crgo=84326-7) Negative NEG Urine pH (test rkek=0094-1) 7.5 5.0-7.0 Urinalysis with microscopy (test lodp=16506-5) NEGATIVE NEG Urine urobilinogen detection (test cxfm=27897-9) 1.0 0.2-1.0 Urine nitrate measurement (test nbva=39366-7) NEGATIVE NEG Urine Leukocyte Esterase (test code=UESTR) NEGATIVE NEG Microscopic examination of ohtkx2145-65-52 18:26:00* Test Item Value Reference Range Comments Urine WBC (test code=UWBC) <5 <5 Urine sediment erythrocyte count by microscopy (number/high power field) (test jgiu=70762-5) NONE SEEN NONE SEEN Bacteria detection in urine sediment by light microscopy (test lggf=39792-0) <20 NONE SEEN Sqamous Epithelial (test code=SQEP) <5 NONE SEEN Urinalysis with reflex to culture (test vlzy=42514-7) NOT NEEDED Culture is not indicated. Amorphous sediment detection in urine sediment by light microscopy (test jbad=6423-5) 1+ NONE SEEN PSA Tygaqlrnfh3126-38-38 17:47:00* Test Item Value Reference Range Comments PSA Diagnostic (test code=PSADX) 0.19 ng/mL 0-4.00 This PSA test was done by the [employer] paramagnetic particle chemiluminescent immunoassay. Values obtained with different assay methods cannot be used interchangeably. Lumbar Spine Wo [place] [address] [facility]Y SERVICES REPORT Name: CHRISTOPH DELAROSA Acct Number: [id number] :1955 Age:62 Sex:M Ord Phys: Angy Lopez MD Unit Number: [id number] [facility] [address]: Status: REG REF RAD Exam Date: 05/26/17 EXAM DESCRIPTION: MRI - Lumbar Spine Wo Con - 05/26/2017 3:20 pm CLINICAL HISTORY: M54.16 COMPARISON: None. TECHNIQUE: Sagittal T1-weighted, T2-weighted and T2-STIR weighted sequences were obtained. Axial T1-weighted and heavily T2-weighted sequenceswere obtained through the lumbar disc levels. FINDINGS: Lumbar bodies are normal in height and alignment. No suspicious marrow signal. No paraspinal masses. Conus is normal with no clumping or thickening of the cauda equina. T12-L1 level: No significant findings. L1-2 level: No significant findings. L2-3 level: Early desiccation change. Bilateral foraminal disc bulge not causing stenosis. No central canal abnormality. L3-4 level: Prominent foraminal disc bulge changes not resulting in spinal stenosis. Central canal disc bulge is minimal. No central spinal stenosis. L4-5 level: Disc desiccation without loss in disc height. Mild bulging of disc material across the central canal and into each exit foramen. No foraminal stenosis or canal stenosis. L5-S1 level: Minimal midline disc bulge. No foraminal disc bulge. No canal or foramen stenosis. No significant facet degenerative change. IMPRESSION: Multilevel disc bulge changes are present. None of these changes cause canal or foramen stenoses. Signed By: Maikol Sauer MD Signed AT: 05/26/171922
--- OUTSIDE RECORDS SUMMARY | 2019-04-12 14:04 | XMS REPORT ---
Author Author Sabiha Sunshine Organization [employer] Address Unknown Phone Unavailable Care Team Providers Care Circle Edger Name Role Phone Sabiha Sunshine CP Unavailable Allergies, Adverse Reactions, Alerts Substance Reaction Event Type PCN Rash Drug Allergy Problems Problem Type Condition Code Onset Dates Condition Status Assessment Chronic allergic rhinitis J30.9 Active Assessment Non-seasonal allergic rhinitis, unspecified trigger J30.89 Active Assessment Chronic allergic conjunctivitis H10.45 Active Problem Chronic allergic conjunctivitis H10.45 Active Problem Non-seasonal allergic rhinitis, unspecified trigger J30.89 Active Problem Chronic allergic rhinitis J30.9 Active Problem Anxiety F41.9 Active Problem Gastroesophageal reflux disease without esophagitis K21.9 Active Problem Low testosterone R79.89 Active Problem Dyslipidemia E78.5 Active Medications Medication Code System Code Instructions Start Date End Date Status Dosage Fenofibrate [facility] 33838019834 200 MG Orally Once a day Active 1 capsule with a meal Tramadol HCl ND 22943663820 50 MG Orally Once a day Mar 25, 2019 Active 1 tablet as needed BusPIRone HCl ND 39983206331 5 MG Orally Twice a day Mar 25, 2019 Active 1 tablet Testosterone Cypionate ND 03076957839 200 MG/ML Intramuscular every 2 weeks Active 1 ml Lansoprazole [facility] 07227628028 30 MG Orally Once a day Active 1 capsule Clonazepam [facility] 86658050447 1 MG Orally Once a day Mar 25, 2019 Active 1 tablet Flonase Allergy Relief ND 35485666129 50 MCG/ACT Nasally Once a day Active 1 spray in each nostril Results No Known Results Summary Purpose [employer] Submission
--- OUTSIDE RECORDS SUMMARY | 2019-04-12 14:04 | XMS REPORT ---
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 Name Role Phone Sabiha Sunshine CP Unavailable Allergies, Adverse Reactions, Alerts Substance Reaction Event Type PCN Rash Drug Allergy Problems Problem Type Condition Code Onset Dates Condition Status Assessment Dyslipidemia E78.5 Active Assessment Low testosterone R79.89 Active Assessment Gastroesophageal reflux disease without esophagitis K21.9 Active Assessment Non-seasonal allergic rhinitis, unspecified trigger J30.89 Active Problem Low testosterone R79.89 Active Problem Dyslipidemia E78.5 Active Problem Non-seasonal allergic rhinitis, unspecified trigger J30.89 Active Assessment Anxiety F41.9 Active Problem Anxiety F41.9 Active Problem Gastroesophageal reflux disease without esophagitis K21.9 Active Medications Medication Code System Code Instructions Start Date End Date Status Dosage Testosterone Cypionate [facility] 84559373731 200 MG/ML Intramuscular every 2 weeks Active 1 ml Fenofibrate [facility] 83966538032 200 MG Orally Once a day Active 1 capsule with a meal Clonazepam [facility] 55937666405 1 MG Orally Once a day Mar 25, 2019 Active 1 tablet Tramadol HCl [facility] 71993884805 50 MG Orally Once a day Mar 25, 2019 Active 1 tablet as needed Lansoprazole [facility] 36290742628 30 MG Orally Once a day Active 1 capsule BusPIRone HCl [facility] 85420208061 5 MG Orally Twice a day Mar 25, 2019 Active 1 tablet Results No Known Results Summary Purpose [employer] Submission
--- OUTSIDE RECORDS SUMMARY | 2019-04-12 14:04 | XMS REPORT ---
Author Author Tanvi Ford Organization [employer] Address Unknown Phone Unavailable Care Team Providers Care Document Scanner Name Role Phone Tanvi Ford CP Unavailable Allergies, Adverse Reactions, Alerts Substance Reaction Event Type PCN Rash Drug Allergy Problems Problem Type Condition Code Onset Dates Condition Status Assessment Contact dermatitis and eczema due to plant L24.7 Active Assessment Hives of unknown origin L50.9 Active Problem Chronic allergic conjunctivitis H10.45 Active Problem Non-seasonal allergic rhinitis, unspecified trigger J30.89 Active Problem Chronic allergic rhinitis J30.9 Active Problem Anxiety F41.9 Active Problem Gastroesophageal reflux disease without esophagitis K21.9 Active Problem Low testosterone R79.89 Active Problem Dyslipidemia E78.5 Active Medications Medication Code System Code Instructions Start Date End Date Status Dosage Fenofibrate [facility] 32339613961 200 MG Orally Once a day Active 1 capsule with a meal Lansoprazole ND 11128676340 30 MG Orally Once a day Active 1 capsule Tramadol HCl [facility] 13518265735 50 MG Orally Once a day Mar 25, 2019 Active 1 tablet as needed Flonase Allergy Relief [facility] 90673919878 50 MCG/ACT Nasally Once a day Active 1 spray in each nostril BusPIRone HCl [facility] 57663823587 5 MG Orally Twice a day Mar 25, 2019 Active 1 tablet Testosterone Cypionate [facility] 30616846216 200 MG/ML Intramuscular every 2 weeks Active 1 ml Clonazepam [facility] 72552983605 1 MG Orally Once a day Mar 25, 2019 Active 1 tablet Results No Known Results Summary Purpose [employer] Submission
--- OUTSIDE RECORDS SUMMARY | 2019-04-12 14:04 | XMS REPORT | Continuity of Care Document ---
Author Author [facility] Address [address] [place] [address] Care Team Providers Care Hand Tier Name Role Phone Yarelis Aldana PCP Franck Pickard Rndphys Maurizio Gunter Attphys Jamshid Stock Rndphys Allergies, Adverse Reactions, Alerts Allergen Type Severity Reaction Last Updated Verified Status adhesive tape Allergy blisters December 05, 2018 Y Active Penicillins Allergy Hives December 05, 2018 Y Active Medications Active Medications Medication Dose Units Route Sig Qty Days Start Date Discontinued Date Status Instructions Clonazepam 1 MG PO TWICE DAILY PRN For Anxiety December 05, 2018 Active Fenofibrate,Micronized 1 CAP PO DAILY December 05, 2018 Active Lansoprazole 1 CAP PO DAILY December 05, 2018 Active Ciprofloxacin Hcl 500 MG PO TWICE DAILY 12 6 December 06, 2018 Active Problem List No problem information available. Procedures Procedure Date Status Provider(s) LAPAROSCOPIC APPENDECTOMY December 05, 2018 completed Maurizio Gunter MD Angio Aorta For Dissection December 05, 2018 completed Relevant Diagnostic Tests and/or Laboratory Data Laboratory Results Test Date/Time Result Interp. Ref. Range Result Comment White Blood Count December 06, 2018 5:43am 6.1 K/uL 4.3-10.9 Delta: 13.2 on 12/05/18-45 Red Blood Count December 06, 2018 5:43am 4.40 M/uL 4.33-5.43 Hemoglobin December 06, 2018 5:43am 14.5 g/dL 13.6-17.9 Hematocrit December 06, 2018 5:43am 43.3 % 39.6-49.0 Mean Corpuscular Volume December 06, 2018 5:43am 98.5 fL 80-100 Delta: 95.5 on 12/05/18 Mean Corpuscular Hemoglobin December 06, 2018 5:43am 32.9 pg 27.0-35.0 Mean Corpuscular Hemoglobin Concent December 06, 2018 5:43am 33.4 g/dL 32.0-36.0 Platelet Count December 06, 2018 5:43am 128 K/uL Low 152-406 Delta: 176 on 12/05/18 Red Cell Distribution Width December 06, 2018 5:43am 13.3 % 12.1-15.2 Mean Platelet Volume December 06, 2018 5:43am 8.6 fL 7.6-11.3 Neutrophils % December 06, 2018 5:43am 70.8 % 41.7-73.7 Lymphocytes % December 06, 2018 5:43am 20.6 % 15.3-44.8 Monocytes % December 06, 2018 5:43am 7.2 % 3.3-12.3 Eosinophils % December 06, 2018 5:43am 1.1 % 0-4.4 Basophils % December 06, 2018 5:43am 0.3 % 0-1.3 Absolute Neutrophil December 06, 2018 5:43am 4.3 K/uL 1.8-8.0 Absolute Lymphocytes (CBC) December 06, 2018 5:43am 1.3 K/uL 0.7-4.9 Absolute Monocytes (CBC) December 06, 2018 5:43am 0.4 K/uL 0.1-1.3 Absolute Eosinophils (CBC) December 06, 2018 5:43am 0.1 K/uL 0-0.5 Absolute Basophils (CBC) December 06, 2018 5:43am 0.0 K/uL 0-0.5 Sodium Level December 06, 2018 5:43am 141 mmol/L 136-145 Potassium Level December 06, 2018 5:43am 4.2 mmol/L 3.5-5.1 Chloride Level December 06, 2018 5:43am 108 mmol/L High 98-107 Carbon Dioxide Level December 06, 2018 5:43am 27 mmol/L 21-32 Glucose Level December 06, 2018 5:43am 164 mg/dL High 74-106 Blood Urea Nitrogen December 06, 2018 5:43am 9 mg/dL 7-18 Creatinine December 06, 2018 5:43am 1.25 mg/dL 0.55-1.3 Estimat Glomerular Filtration Rate December 06, 2018 5:43am 59 mL/min Low 90- FOR CHRONIC KIDNEY DISEASE: GFR STAGE DESCRIPTION =/>90 STAGE 1 NORMAL--OR-- MINIMAL KIDNEY DAMAGE WITH NORMAL GFR 60-89 STAGE 2 MILD DECREASE IN GFR 30-59 STAGE 3 MODERATE DECREASE IN GFR 15-29 STAGE 4 SEVERE DECREASE IN GFR <15 STAGE 5 KIDNEY FAILURE The Glomerular Filtration Rate (GFR) has been calculated using the IDMS-Traceable MDRD Study Equation. Aspartate Amino Transf (AST/SGOT) December 05, 2018 6:45am 28 U/L 15-37 Alanine Aminotransferase (ALT/SGPT) December 05, 2018 6:45am 27 U/L 12-78 Alkaline Phosphatase December 05, 2018 6:45am 68 U/L 45-117 Total Bilirubin December 05, 2018 6:45am 0.9 mg/dL 0.2-1.0 Direct Bilirubin December 05, 2018 6:45am 0.2 mg/dL 0-0.2 Calcium Level December 06, 2018 5:43am 8.2 mg/dL Low 8.5-10.1 Serum Total Protein December 05, 2018 6:45am 7.5 g/dL 6.4-8.2 Albumin December 05, 2018 6:45am 3.7 g/dL 3.4-5.0 Globulin December 05, 2018 6:45am 3.8 g/dL High 2.3-3.5 Albumin/Globulin Ratio December 05, 2018 6:45am 1.0 Low 1.1-1.8 Rapid Troponin I December 05, 2018 6:45am < 0.02 ng/mL 0.0-0.045 Magnesium Level December 06, 2018 5:43am 2.0 mg/dL 1.8-2.4 Lipase December 05, 2018 6:45am 123 U/L 73-393 Total Estradiol September 25, 2018 5:15pm <15 pg/mL Reference range established on post-pubertal patient population. No pre-pubertal reference range established using this assay. For any patients for whom low Estradiol levels are anticipated (e.g. males, pre-pubertal children, and hypogonadal/post-menopausal females), the [facility] Estradiol, Ultrasensitive, LCMSMS assay is recommended (order code 17035). Please note: Patients being treated with the drug fulvestrant [Faslodex(R)] have demonstrated significant interference in immunoassay methods for estradiol measurement. The cross reactivity could lead to falsely elevated estradiol test results leading to an inappropriate clinical assessment of estrogen status. [employer] order code 41317-[id number], Ultrasensitive LC/MS/MS demonstrates negligible cross reactivity with fulvestrant. Discharge Summary Encounter: Discharged Inpatient Admit Date: December 05, 2018 9:17am Discharge Date: December 06, 2018 1:12pm [facility] NAME: GOLDEN WILL ADMITTING: Maurizio Gunter MD ADMIT DATE: 12/05/18 ATTENDING: Maurizio Gunter MD : 1955 ACCOUNT NO: [id number] PATIENT TYPE: DIS IN LOCATION: 2ND Nurse's Notes [facility] Name: Golden Will Age: 63 yrs Sex: Male : 1955 Arrival Date: 12/05/2018 Time: 06:29 Bed 8 Private MD: Diagnosis: Acute appendicitis Presentation: 12/05 06:40 Presenting complaint: Patient states: he woke up this morning with a constant dull bb abdominal pain and vomiting denies diarrhea states "I just can't get comfortable". Transition of care: patient was not received from another setting of care. Onset of symptoms was December 05, 2018. Risk Assessment: Do you want to hurt yourself or someone else? Patient reports no desire to harm self or others. Initial Sepsis Screen: Does the patient meet any 2 criteria? No. Patient's initial sepsis screen is negative. Does the patient have a suspected source of infection? No. Patient's initial sepsis screen is negative. Care prior to arrival: None. 06:40 Method Of Arrival: Ambulatory bb 06:40 Acuity: JANELL 3 bb Historical: - Allergies: 06:54 PENICILLINS; bb - Home Meds: 06:54 fenofibrate oral oral [Active]; Clonazepam Oral [Active]; Prevacid Oral [Active]; bb testosterone [Active]; - PMHx: 06:54 Anxiety; Hyperlipidemia; bb - PSHx: 06:54 hip replacement x 4; hernia with mesh; bb - Immunization history:: Adult Immunizations up to date. - Social history:: Smoking status: Patient/guardian denies using tobacco, Patient uses alcohol, occasionally. Patient/guardian denies using street drugs. - Ebola Screening: : No symptoms or risks identified at this time. Screenin:45 Abuse screen: Denies threats or abuse. Nutritional screening: No deficits noted. bb Tuberculosis screening: No symptoms or risk factors identified. Fall Risk None identified. Assessment: 06:45 General: Appears in no apparent distress. uncomfortable, Behavior is calm, cooperative. bb Pain: Complains of pain in abdomen Pain currently is 7 out of 10 on a pain scale. Pain began suddenly, Is continuous. Neuro: Level of Consciousness is awake, alert, obeys commands, Oriented to person, place, time, situation. Cardiovascular: Heart tones S1 S2 present Capillary refill < 3 seconds Patient's skin is warm and dry. Pulses are all present. Edema is absent. Respiratory: Airway is patent Respiratory effort is even, unlabored, Respiratory pattern is regular, Breath sounds are clear bilaterally. GI: Abdomen is non-distended, Bowel sounds present X 4 quads. Abd is soft X 4 quads Abdomen is tender to palpation in right lower quadrant and left lower quadrant Reports lower abdominal pain, vomiting. : No signs and/or symptoms were reported regarding the genitourinary system. Derm: Skin is pink, warm \\T\\ dry. Musculoskeletal: Circulation, motion, and sensation intact. 07:15 Reassessment: Patient appears in no apparent distress at this time. Patient and/or sv family updated on plan of care and expected duration. Pain level reassessed. Patient is alert, oriented x 3, equal unlabored respirations, skin warm/dry/pink. 08:34 Reassessment: Patient appears in no apparent distress at this time. Patient and/or tw2 family updated on plan of care and expected duration. Pain level reassessed. Patient is alert, oriented x 3, equal unlabored respirations, skin warm/dry/pink. Patient states symptoms have not improved. 10:51 Reassessment: Patient appears in no apparent distress at this time. Patient and/or sv family updated on plan of care and expected duration. Pain level reassessed. Patient is alert, oriented x 3, equal unlabored respirations, skin warm/dry/pink. 11:00 Reassessment: Patient appears in no apparent distress at this time. Patient and/or sv family updated on plan of care and expected duration. Pain level reassessed. Patient is alert, oriented x 3, equal unlabored respirations, skin warm/dry/pink. Vital Signs: 06:54 BP 168 / 104; Pulse 103; Resp 18 S; Temp 99.4(O); Pulse Ox 99% on R/A; Weight 83.91 kg bb (R); Height 5 ft. 10 in. (177.80 cm) (R); Pain 7/10; 07:34 BP 158 / 94; Pulse 90; Resp 18; Pulse Ox 97% ; sv 08:34 BP 173 / 101; Pulse 94; Resp 18; Pulse Ox 99% on R/A; Pain 7/10; tw2 09:30 BP 173 / 98; Pulse 95; Resp 15; Pulse Ox 99% ; sv 10:30 BP 175 / 93; Pulse 91; Resp 14; Pulse Ox 99% ; sv 06:54 Body Mass Index 26.54 (83.91 kg, 177.80 cm) ED Course: 06:29 Patient arrived in ED. ds1 06:43 [facility]C [facility] snw 06:43 Franck Pickard MD is Attending Physician. snw 06:45 Patient has correct armband on for positive identification. Placed in gown. Bed in low bb position. Call light in reach. Side rails up X 1. Adult w/ patient. Pulse ox on. NIBP on. Warm blanket given. 06:45 Initial lab(s) drawn, by ks, sent to lab. Inserted saline lock: 20 gauge in right bb antecubital area, using aseptic technique. Blood collected. 06:50 Wen Easton, ASHLY is Primary Nurse. bb 06:52 Triage completed. bb 06:54 Arm band placed on Patient placed in an exam room, on a stretcher, on pulse oximetry. bb Family accompanied patient. 07:01 EKG done, by technical manager chemical plant. reviewed by Stefania ETIENNE. tl2 08:29 CT Aorta for Dissection In Process Unspecified. EDMS 09:03 Attending Physician role handed off by Franck Pickard MD kdr 09:03 Orestes Lu MD is Attending Physician. kdr 09:15 Maurizio Gunter MD is Hospitalizing Provider. snw 10:50 Primary Nurse role handed off by Wen Easton RN sv 10:50 Rama Patel RN is Primary Nurse. sv 11:07 No provider procedures requiring assistance completed. Patient admitted, IV remains in sv place. intact. Administered Medications: 07:10 Drug: Phenergan 12.5 mg Route: IVP; Site: right antecubital; bb 08:32 Follow up: Response: No adverse reaction; Nausea is decreased tw2 07:10 Drug: NS 0.9% 1000 ml Route: IV; Rate: 125 ml/hr; Site: right antecubital; bb 11:07 Follow up: Response: No adverse reaction; IV Status: Infusion continued upon admission sv 07:11 Drug: morphine 4 mg Route: IVP; Site: right antecubital; bb 08:34 Follow up: Response: No adverse reaction; Pain is unchanged, physician notified tw2 08:32 Drug: fentaNYL (PF) 50 mcg Route: IVP; Site: right antecubital; tw2 09:00 Follow up: Response: No adverse reaction sv 09:50 Drug: Flagyl 500 mg Volume: 100 ml; Route: IVPB; Rate: 200 ml/hr; Infused Over: 30 sv mins; Site: right antecubital; 10:50 Follow up: Response: No adverse reaction; IV Status: Completed infusion; IV Intake: sv 100ml 10:51 Follow up: Response: No adverse reaction; IV Intake: 100ml sv 10:51 Drug: LevaQUIN 750 mg Volume: 150 ml; Route: IVPB; Infused Over: 90 mins; Site: right sv antecubital; 11:07 Follow up: Response: No adverse reaction; IV Status: Infusion continued upon admission sv Intake: 10:50 IV: 100ml; Total: 100ml. sv 10:51 IV: 100ml; Total: 200ml. sv Output: 10:00 Urine: 700ml (Voided); Total: 700ml. sv Outcome: 09:16 Decision to Hospitalize by Provider. snw 11:06 Admitted to OR accompanied by nurse, family with patient, via stretcher, with chart, sv Report called to REIMBURSEMENT ANALYST 11:06 Condition: stable 11:06 Instructed on the need for admit. 11:08 Patient left the ED. sv Signatures: Dispatcher [employer] EDRama Murcia, RN RN Orestes Oliveira MD MD [facility] Stefania Reyes, FOUNDING PARTNER-C FOUNDING PARTNER-[employer] Danielle Hare ds1 Wen Easton, RN RN bb Katherin Tejeda RN RN tw2 Kim Renner RN RN tl2 12/05/18 1109 Advance Directives Advance Directive Response Recorded Date/Time Does Patient Have Living Will Yes December 05, 2018 6:00pm Durable Power of Productivity Engineer for Health Care Yes December 05, 2018 4:00pm Would you like additional information Yes December 05, 2018 4:00pm Chief Complaint and Reason for Visit Encounter Admit Date Chief Complaint Reason for Visit Discharged Inpatient December 05, 2018 9:17am ACUTE APENDICITIS Hospital Discharge Instructions No known hospital discharge instructions. Hospital Discharge Medications Medication Dose Units Route Sig Qty Days Order Date Status Instructions Clonazepam 1 MG PO TWICE DAILY PRN For Anxiety December 05, 2018 Active Fenofibrate,Micronized 1 CAP PO DAILY December 05, 2018 Active Lansoprazole 1 CAP PO DAILY December 05, 2018 Active Ciprofloxacin Hcl 500 MG PO TWICE DAILY 12 6 December 06, 2018 Active Encounters Encounter Facility Location Admit Date Discharge Date Attending Provider Discharged Inpatient [facility] MED/SURG FLOOR December 05, 2018 9:17am December 06, 2018 1:12pm Maurizio Gunter Registered Referred [facility] MAIN LABORATORY September 25, 2018 4:54pm Jagruti Garzon Functional Status Query Response Date Recorded Comment Mental Status Oriented to Own Ability December 06, 2018 8:00am Query Response Date Recorded Comment Bathe Self Independent December 05, 2018 4:00pm Completes ADL's Without Assistance Yes December 05, 2018 4:00pm Cook for Self Independent December 05, 2018 4:00pm Dress/Fenton Self Independent December 05, 2018 4:00pm Feed Self Independent December 05, 2018 4:00pm Toileting Independent December 05, 2018 4:00pm Immunizations No known immunizations. Payers Payer Name Policy Type Covered Democrat Covered Democrat Id Relationship Subscriber Subscriber Id [id number] Health Maintenance Organization (HMO) GOLDEN WILL [id number] SAME PATIENT (SELF) GOLDEN WILL [id number] Plan of Care Instructions Laparoscopic Appendectomy, Adult, Care After, [id number] PROBLEM: Appendectomy GOAL: Clear understanding of disease process INSTRUCTIONS: 1. Recommend follow up with PCP in 1-2 weeks to follow up this hospitalization. 2. Patient presented with acute appendicitis. Patient seen by surgery. Surgical intervention included laparoscopic appendectomy. Patient tolerated procedure well. Continue with postop surgical care. Continue with surgery recommendations. No heavy lifting, pushing or pulling. Follow up with surgery within 1 week. 3. Patient with hyperlipidemia. At discharge he will continue with fenofibrate 200 mg daily. 4. Patient with history of anxiety. At discharge he will continue with clonazepam 1 mg 1 pill twice daily as needed. 5. Patient with history of GERD. At discharge he can continue with his medication. Diet: GI soft diet Activity: No lifting more than 10 lbs Prescription for antibiotic sent electronically to [facility] pharmacy Prescription for pain medication called in to [facility] pharmacy [employer] [employer] Services Needed: Name of Company: Date or Referral: Social History Query Response Date Recorded Comment Alcohol Use? Yes December 05, 2018 4:00pm CD- Drugs? No December 05, 2018 4:00pm Query Response Start Date Stop Date Smoking Status Former smoker May 29, 1972 May 29, 1988 Vital Signs Vital Reading Result Reference Range Collection Date/Time Height 5 ft 10 in December 05, 2018 4:00pm Weight 185 lb December 05, 2018 4:00pm Temperature 97.2 F 96.8 F-100.9 F December 06, 2018 9:36am Pulse 69 BPM 50-90 December 06, 2018 9:36am Respiration 18 RPM 12-20 December 06, 2018 9:36am Pulse Oximetry 98 % 91- December 06, 2018 9:36am Blood Pressure Systolic 129 90-140 December 06, 2018 9:36am Blood Pressure Diastolic 60 60-90 December 06, 2018 9:36am Body Mass Index 26.5 December 05, 2018 4:00pm
[2019-04-12] MEDS ORDERED: CLONIDINE HCL 0.1 MG TAB PO ONE (14:30)
[2019-04-12] MEDS ORDERED: ACETAMINOPHEN 325 MG TAB PO ONE (14:45)
[2019-04-12] MEDS ORDERED: CLONIDINE HCL 0.1 MG TAB ONE (14:58)
[2019-04-12] MEDS ORDERED: ACETAMINOPHEN 325 MG TAB ONE (14:59)
--- NOTE | 2019-04-12 15:26 | Diagnostic Imaging Report ---
EXAM: CT Abdomen and Pelvis WITHOUT intravenous contrast INDICATION: Lower back pain COMPARISON: None. TECHNIQUE: Abdomen and pelvis were scanned utilizing a multidetector helical scanner from the lung base to the pubic symphysis without administration of IV contrast. Coronal and sagittal reformations were obtained. Routine protocol was performed. IV CONTRAST: None ORAL CONTRAST: Water RADIATION DOSE: Total DLP: 720.4 mGy*cm Dose modulation, iterative reconstruction, and/or weight based adjustment of the mA/kV was utilized to reduce the radiation dose to as low as reasonably achievable. FINDINGS: LOWER THORAX: Normal. HEPATOBILIARY: No focal hepatic lesions. No biliary ductal dilatation. The gallbladder appears unremarkable. SPLEEN: No splenomegaly. PANCREAS: No focal masses or ductal dilatation. ADRENALS: No adrenal nodules. KIDNEYS/URETERS: No hydronephrosis, stones, or solid mass lesions. PELVIC ORGANS/BLADDER: Evaluation is obscured by streak artifact from bilateral total hip replacement. PERITONEUM / RETROPERITONEUM: No free air or fluid. LYMPH NODES: No lymphadenopathy. VESSELS: Scattered atherosclerotic calcifications of the nonaneurysmal abdominal aorta and major branches. GI TRACT: Diverticulosis without CT evidence of diverticulitis. No abnormal bowel thickening. No bowel obstruction. Postoperative findings of appendectomy. BONES AND SOFT TISSUES: Status post right and left total hip replacements. No acute fracture or dislocation. IMPRESSION: No acute findings in the abdomen or pelvis. Signed by: Adela Culver MD on 04/12/2019 3:23 PM
== END 2019-04-12 15:30 | disposition left against medical advice (07) ==
LOC: FSED 14:01
DX: M54.5 Low back pain (principal); R31.9 Hematuria, unspecified; R35.0 Frequency of micturition; N41.0 Acute prostatitis
CPT/HCPCS: 74176; 80053; 81003; 85025; 99283